=== PATIENT | male | born 1950 | race Two or more races ===

== ENCOUNTER 2018-04-17 20:16 | Emergency (ER) | payer MEDICARE ==
[~2018-04-17] VITALS: Ht 180.3 cm; Wt 108.9 kg
--- NOTE | 2018-04-17 20:35 | NUR ---
Pt ambulated in ER with stable gait with the c/o right shoulder pain s/p fall 45 mins [employer]. Pt is AAOx3 and speaking in complete sentences. Pt states that he fell off a bar stool and landed on his right shoulder. Pt denies LOC and N/V. Safe environment implemented.
--- NOTE | 2018-04-17 20:52 | NUR ---
Dr. Lutz at bedside for MSE.
[2018-04-17] MEDS ORDERED: HYDROCODONE/APAP 10-325 MG TABLET PO ONE (21:00)
[2018-04-17] MEDS ORDERED: HYDROCODONE/APAP 10-325 MG TABLET ONE (21:00)
[2018-04-17 21:35] VITALS: BP 134/90
--- NOTE | 2018-04-17 22:18 | NUR ---
Patient back in room from CT scan.
--- NOTE | 2018-04-17 22:21 | NUR ---
Patient placed on shoulder immobolizer. [facility]. Patient discharged to home in stable conditon. Written and verbal after care instructions given. Patient verbalizes understanding of instructions. Patient instructed not to drive. Patient states he will have brother bring him home. Patient ambulated out of ER with stable gait.
== END 2018-04-17 22:22 | disposition home or self-care (01) ==
LOC: ER 20:19
DX: S42.001A Fracture of unspecified part of right clavicle, initial encounter for closed fracture (principal); S06.0X0A Concussion without loss of consciousness, initial encounter; E11.9 Type 2 diabetes mellitus without complications; W01.198A Fall on same level from slipping, tripping and stumbling with subsequent striking against other object, initial encounter; Y93.89 Activity, other specified; Y99.8 Other external cause status
CPT/HCPCS: 70450; 72125; 73000; 73030; A4663